=== PATIENT | male | born 1985 | race African-American/Black ===

== ENCOUNTER 2018-05-16 08:48 | Emergency (ER) | payer BC, OTHER ==
[~2018-05-16] VITALS: Ht 170.2 cm; Wt 54.4 kg
[~2018-05-16 08:48] MED LIST: NOHOMEMEDICATIONS
[2018-05-16] MEDS ORDERED: VALACYCLOVIR1000 MG PO (09:23)
[2018-05-16] MEDS ORDERED: NAPROSYN500 MG PO (09:24)
[2018-05-16 09:25] VITALS: BP 121/89
== END 2018-05-16 09:36 | disposition home or self-care (01) ==
LOC: ER 08:48
DX: B02.9 Zoster without complications (principal); F17.210 Nicotine dependence, cigarettes, uncomplicated

== ENCOUNTER 2019-03-17 09:30 | Emergency (ER) | payer OTHER ==
[~2019-03-17] VITALS: Ht 167.6 cm; Wt 55.8 kg
[~2019-03-17 09:30] MED LIST changes: +NAPROSYN500 MG PO; +VALACYCLOVIR1000 MG PO
[2019-03-17 10:18] LABS: HEMATOCRIT 41.2 % (42.0-52.0); HEMOGLOBIN 13.6 gm/dL (14.0-18.0); MCH 31.7 pg (26.0-34.0); MCHC 32.9 g/dL (28.0-37.0); MCV 96.3 fL (80.0-100.0); PLATELET COUNT 181 thou/uL (150-400); RBC 4.28 mil/uL (4.50-6.00); RDW 14.1 % (10.5-14.5); WBC 2.8 thou/uL (4.0-11.0)
[2019-03-17 10:21] LABS: ANION GAP 7 mmol/L (7-16); BUN 10 mg/dL (7-18); CALCIUM 8.8 mg/dL (8.5-10.1); CHLORIDE 102 mmol/L (98-107); CO2 27 mmol/L (21-32); CREATININE 1.3 mg/dL (0.7-1.3); GLUCOSE 115 mg/dL (74-106); POTASSIUM 4.4 mmol/L (3.5-5.1); SODIUM 136 mmol/L (136-145)
[2019-03-17 10:30] LABS: TROPONIN-I <0.06 ng/mL (<0.06)
[2019-03-17 11:18] LABS: ABSOLUTE NEUTROPHILS 0.7 thou/uL (1.4-8.2); PLATELET ESTIMATE NORMAL
[2019-03-17 12:21] VITALS: BP 126/77
--- NOTE | 2019-03-18 07:52 | EKG ---
[place] [id number] From [facility] [place] [address] ELECTROCARDIOGRAM REPORT Name: FERNANDO HUTSON Room #: [facility]#: [id number] Admission: 03/17/19 Attend Phys: Discharge: 03/17/19 Date of : 81 Report #: [id number] THIS REPORT FOR: //name// [facility] ED Test Date: 2019-03-17 Test Time: 09:34:06 Pat Name: FERNANDO HUTSON Department: Room: Gender: Platform Consultant: LAVELLE : 1985 Requested By: Sybil Alaniz Order Number: [id number] MD: Tito Enriquez Measurements Intervals [place] Rate: 90 P: 74 VA: 152 QRS: 63 QRSD: 78 T: 56 QT: 341 QTc: 418 Interpretive Statements Sinus rhythm Consider right atrial enlargement RSR' in V1 or V2, probably normal variant Compared to ECG 12/18/2013 06:05:00 Sinus tachycardia no longer present Electronically Signed On 03-18-2019 7:51:55 CDT by Tito Enriquez [email or web address] <ELECTRONICALLY SIGNED> By: Tito Enriquez MD, [facility] 03/18/19 0751 3 Tito Enriquez MD, [facility] /EPI
== END 2019-03-17 12:22 | disposition home or self-care (01) ==
LOC: ER 09:30
PROVIDERS: Emergency Medicine
DX: M25.512 Pain in left shoulder (principal); R07.89 Other chest pain; Z86.2 Personal history of diseases of the blood and blood-forming organs and certain disorders involving the immune mechanism; Z87.891 Personal history of nicotine dependence